=== PATIENT | male | born 1990 | race Caucasian/White ===

== ENCOUNTER 2017-04-28 16:17 | Inpatient (IN) | payer OTHER ==
[2017-04-28 18:04] LABS: Hemoglobin 13.4 gm/dl (11.8-15.2); Mean Corpuscular HGB Conc 34 % (32-34); Mean Corpuscular Hemoglobin 29 pg (28-32); Mean Corpuscular Volume 83 fl (84-94); Platelet Count 480 K/mm3 (140-440); Red Cell Distribution Width 13.2 % (13.2-15.2)
[2017-04-28 18:51] LABS: BUN/Creatinine Ratio 30; Blood Urea Nitrogen 27 mg/dL (9-20); Calcium 8.1 mg/dL (8.4-10.2); Hemolysis Index 9
[2017-04-28 21:16] LABS: Basophils % (Manual) 0 % (0.0-1.8); Total Cells Counted 200
[2017-04-28 21:17] LABS: Band Neutrophils # (Manual) 0.1 K/mm3; Eosinophils % (Manual) 0 % (0.0-4.3); Large Platelets Rare; Myelocytes # (Manual) 0.3 K/mm3; Platelet Estimate Consistent w Auto
[2017-04-29] MEDS ORDERED: K-DUR PO ONE (08:11)
--- NOTE | 2017-04-29 08:18 | Emergency Department Report ---
ED General Adult HPI - General Chief complaint: Recheck/Abnormal Lab/Rx Stated complaint: POTASSIUM Time Seen by Provider: 04/29/17 08:02 Source: patient, sole dyer Mode of arrival: Ambulatory Limitations: No Limitations - History of Present Illness Initial comments: Patient is 27 years old male sent from long-term for evaluation of a possible low potassium level. Patient stated that he has muscle cramps all over his body. Patient stated that he was recently treated for possible infection but he does not know exactly what was it , he think it's most likely urinary tract infection. Patient is currently denying any nausea or vomiting. Denied any cough or shortness of breath or fever. No abdominal pain and denied any urinary symptoms at this moment. Severity scale (0 -10): 0 - Related Data Allergies Allergy/AdvReac Type Severity Reaction Status Date / Time Penicillins Allergy Unknown Verified 04/28/17 17:24 promethazine [From Phenergan] Allergy Unknown Verified 04/28/17 17:24 ED Review of Systems ROS: Stated complaint: POTASSIUM Other details as noted in HPI Comment: All other systems reviewed and negative Constitutional: denies: chills, fever Respiratory: denies: cough, shortness of breath, SOB with exertion Cardiovascular: denies: chest pain, palpitations, dyspnea on exertion, edema, syncope, paroxysmal nocturnal dyspnea Gastrointestinal: denies: abdominal pain, nausea, vomiting, diarrhea, constipation, hematemesis, hematochezia Genitourinary: denies: urgency, dysuria, frequency, hematuria Musculoskeletal: myalgia. denies: back pain, joint swelling, arthralgia Skin: denies: rash, lesions Neurological: denies: headache, weakness, numbness, paresthesias, confusion, abnormal gait ED Past Medical Hx - Past Medical History Previous Medical History?: Yes Hx Asthma: Yes Additional medical history: High Cholesterol, Nephrotic Syndrome - Surgical History Past Surgical History?: Yes Additional Surgical History: Hernia repair, wrist - Social History Smoking Status: Never Smoker Substance Use Type: None ED Physical Exam - General Limitations: No Limitations General appearance: alert, in no apparent distress - Head Head exam: Present: atraumatic, normocephalic, normal inspection - Eye Eye exam: Present: normal appearance, PERRL Pupils: Present: normal accommodation - ENT ENT exam: Present: normal exam, normal orophraynx, mucous membranes moist - Neck Neck exam: Present: normal inspection, full ROM. Absent: tenderness, meningismus, lymphadenopathy - Respiratory Respiratory exam: Present: normal lung sounds bilaterally. Absent: respiratory distress, wheezes, rales, rhonchi, stridor, chest wall tenderness, accessory muscle use, decreased breath sounds, prolonged expiratory - Cardiovascular Cardiovascular Exam: Present: regular rate, normal rhythm, normal heart sounds - GI/Abdominal GI/Abdominal exam: Present: soft, normal bowel sounds. Absent: distended, tenderness, guarding, rebound, rigid, organomegaly, mass, bruit, pulsatile mass , hernia - Extremities Exam Extremities exam: Present: normal inspection, full ROM, normal capillary refill - Back Exam Back exam: Present: normal inspection, full ROM. Absent: tenderness, CVA tenderness (R), CVA tenderness (L), muscle spasm, paraspinal tenderness, vertebral tenderness - Neurological Exam Neurological exam: Present: alert, oriented X3, CN II-XII intact, normal gait, reflexes normal. Absent: abnormal gait, motor sensory deficit - Skin Skin exam: Present: warm, intact, normal color ED Course Vital Signs 04/28/17 04/29/17 04/29/17 17:09 02:59 04:50 Temperature 98.5 F 98.1 F 98.5 F Pulse Rate 89 81 86 Respiratory 16 18 20 Rate Blood Pressure 100/60 113/60 Blood Pressure 90/50 [Right] O2 Sat by Pulse 98 98 100 Oximetry 04/29/17 04/29/17 04/29/17 10:00 10:20 10:30 Temperature Pulse Rate 85 79 Respiratory 14 13 11 L Rate Blood Pressure 84/51 Blood Pressure [Right] O2 Sat by Pulse 99 99 99 Oximetry 04/29/17 10:45 Temperature Pulse Rate 85 Respiratory 15 Rate Blood Pressure 90/55 Blood Pressure [Right] O2 Sat by Pulse 97 Oximetry ED Medical Decision Making - Lab Data Result diagrams: 04/29/17 09:11 04/28/17 17:27 - EKG Data -: EKG Interpreted by Md EKG shows normal: sinus rhythm - EKG Data Interpretation: no acute changes - Radiology Data Radiology results: report reviewed Referring Physician: SAVANNAH ROSALES Patient Name: CARSON MEDINA Date of : 1990 Sex: Male Report Date: 2017-04-29 Report Status: Finalized Findings [facility] [address] [place] [address] XRay Report Signed Patient: CARSON QUICK MR#: [id number] : 1990 Acct:[id number] Age/Sex: 27 / M ADM Date: 04/28/17 Loc: ED Attending Dr: Ordering Physician: SAVANNAH ROSALES Date of Service: 04/29/17 Procedure(s): XR chest 1V ap Accession Number(s): [id number] cc: SAVANNAH ROSALES Fluoro Time In Minutes: AP CHEST: HISTORY: Cough, leukocytosis AP view of the chest demonstrates a normal mediastinal and cardiac contour with clear lungs and normal bony and soft tissue structures. IMPRESSION: Unremarkable AP chest. Transcribed By: TTR Dictated By: LUCAS BARRETT JR, MD Electronically Authenticated By: LUCAS BARRETT JR, MD Signed Date/Time: 04/29/17 1106 DD/ 1106 TD/TT: 04/29/17 1106 - Medical Decision Making Patient stated that he is feeling better. Potassium replaced. Patient has a leukocytosis that went up from 28,000 to 32,000, I discussed with Dr. Moulton presented the patient and he agreed to admit the patient to be service. Critical care attestation.: If time is entered above; I have spent that time in minutes in the direct care of this critically ill patient, excluding procedure time. ED Disposition Clinical Impression: Hypokalemia, Leukocytosis Disposition: OP ADMIT IP TO THIS HOSP Is pt being admited?: No Condition: Stable Referrals: GENEVA MORRISSEY MD [Primary Care Provider] - 3-5 Days
[2017-04-29 09:26] LABS: Hematocrit 38.9 % (35.5-45.6); Hemoglobin 13.4 gm/dl (11.8-15.2); Mean Corpuscular HGB Conc 35 % (32-34); Mean Corpuscular Hemoglobin 29 pg (28-32); Mean Corpuscular Volume 84 fl (84-94); Platelet Count 436 K/mm3 (140-440); Red Blood Count 4.64 M/mm3 (3.65-5.03); Red Cell Distribution Width 13.4 % (13.2-15.2)
[2017-04-29] MEDS: KCL 10MEQ/100ML 10 MEQ/100 ML BAG IV SCH ×2 (09:55→11:56)
[2017-04-29 10:23] LABS: Total Cells Counted 100
[2017-04-29 10:24] LABS: Basophils % (Manual) 0 % (0.0-1.8); Eosinophils % (Manual) 0 % (0.0-4.3); Platelet Estimate Consistent w Auto; RBC Morphology Normal
[2017-04-29] MEDS ORDERED: NACL 0.9% 1000 ML 1,000 ML ONE (10:32)
[2017-04-29] MEDS ORDERED: LEVAQUIN 750MG/150ML 750 MG/150 ML BAG IV ONE (10:38)
--- NOTE | 2017-04-29 11:12 | XRay Report ---
AP CHEST: HISTORY: Cough, leukocytosis AP view of the chest demonstrates a normal mediastinal and cardiac contour with clear lungs and normal bony and soft tissue structures. IMPRESSION: Unremarkable AP chest.
[2017-04-29] MEDS ORDERED: NACL 0.9% 1000 ML 1,000 ML IV ONE (11:42)
[2017-04-29] MEDS ORDERED: DULCOLAX PR PRN (12:23)
[2017-04-29] MEDS ORDERED: PERCOCET 5/325 PO PRN (12:23)
[2017-04-29] MEDS ORDERED: PROVENTIL IH PRN (12:23)
[2017-04-29] MEDS ORDERED: ZOFRAN IV PRN (12:23)
[2017-04-29] MEDS ORDERED: AMBIEN PO PRN (12:23)
[2017-04-29] MEDS ORDERED: TYLENOL PO PRN (12:23)
[2017-04-29 12:57] LABS: Bacteria,Urine 1+ /HPF (Negative); Bilirubin,Urine NEG (Negative); Blood,Urine NEG (Negative); Color,Urine Colorless (Yellow); Nitrite,Urine NEG (Negative); RBC,Urine < 1.0 /HPF (0.0-6.0); Urobilinogen,Urine < 2.0 mg/dL (<2.0); WBC,Urine < 1.0 /HPF (0.0-6.0)
[2017-04-29] MEDS: NACL 0.9% 1000 ML 1,000 ML IV SCH (14:12)
--- NOTE | 2017-04-29 15:27 | History and Physical Report ---
History of Present Illness Date of examination: 04/29/17 Date of admission: 04/29/17 11:40 Chief complaint: Muscle cramps/Potassium History of present illness: Patient is 27 years old male sent from care home for evaluation of a possible low potassium level. Patient stated that he has muscle cramps all over his body. Patient stated that he was recently treated for possible infection but he does not know exactly what was it , he think it's most likely urinary tract infection. Patient is currently denying any nausea or vomiting. Denied any cough or shortness of breath or fever. No abdominal pain and denied any urinary symptoms at this moment. Past History Past Medical History: hyperlipidemia, other (asthma, nephrotic syndrome) Past Surgical History: Other (Hernia repair, wrist) Social history: smoking (never smoked) Medications and Allergies Allergies Allergy/AdvReac Type Severity Reaction Status Date / Time Penicillins Allergy Unknown Verified 04/28/17 17:24 promethazine [From Phenergan] Allergy Unknown Verified 04/28/17 17:24 Home Medications Medication Instructions Recorded Confirmed Last Taken Type No Known Home Medications [No 04/29/17 04/29/17 Unknown History Reported Home Medications] Active Meds: Active Medications Acetaminophen (Tylenol) 650 mg PO Q4H PRN PRN Reason: Pain MILD(1-3)/Fever >100.5/YOUSIF Albuterol (Proventil) 2.5 mg IH Q4HRT PRN PRN Reason: Shortness Of Breath Bisacodyl (Dulcolax) 10 mg FL QDAY PRN PRN Reason: Constipation unrelieved by [facility] [place] Sodium Chloride (Nacl 0.9% 1000 Ml) 1,000 mls @ 100 mls/hr IV DIRECT DAX Last Admin: 04/29/17 14:12 Dose: 100 mls/hr Ondansetron HCl (Zofran) 4 mg IV Q8H PRN PRN Reason: N/V unrelieved by Reglan Oxycodone/Acetaminophen (Percocet 5/325) 1 tab PO Q6H PRN PRN Reason: Pain, Moderate (4-6) Zolpidem Tartrate (Ambien) 5 mg PO QHS PRN PRN Reason: Insomnia Review of Systems Constitutional: no weight loss, no weight gain, no chills Ears, nose, mouth and throat: no ear pain, no decreased hearing, no nasal congestion Cardiovascular: no orthopnea, no edema, no lightheadedness Respiratory: no cough with sputum, no hemoptysis, no shortness of breath Gastrointestinal: no vomiting, no constipation, no coffee ground emesis Genitourinary Male: no discharge, no urinary frequency, no nocturia Rectal: no pain, no bleeding Musculoskeletal: myalgias, no neck pain, no low back pain Integumentary: no pruritis, no sores, no jaundice Neurological: no transient paralysis, no weakness, no tingling Psychiatric: no anxiety, no change in sleep habits, no insomnia Endocrine: no heat intolerance, no excessive thirst, no polyuria Hematologic/Lymphatic: no easy bruising, no easy bleeding Allergic/Immunologic: no urticaria, no allergic rhinitis Exam - Constitutional Vitals: Temp Pulse Resp BP Pulse Ox 98.9 F 92 H 18 88/54 99 04/29/17 13:21 04/29/17 13:21 04/29/17 13:21 04/29/17 13:21 04/29/17 13:21 General appearance: Present: no acute distress, well-nourished - EENT Eyes: Present: PERRL ENT: hearing intact, clear oral mucosa - Neck Neck: Present: supple, normal ROM - Respiratory Respiratory effort: normal Respiratory: bilateral: CTA - Cardiovascular Heart Sounds: Present: S1 & S2. Absent: rub, click - Extremities Extremities: pulses symmetrical, No edema Peripheral Pulses: within normal limits - Abdominal General gastrointestinal: Present: soft, non-tender, non-distended, normal bowel sounds Male genitourinary: Present: deferred - Rectal Rectal Exam: deferred - Integumentary Integumentary: Present: clear, warm, dry - Musculoskeletal Musculoskeletal: gait normal, strength equal bilaterally - Psychiatric Psychiatric: appropriate mood/affect, intact judgment & insight - Neurologic Neurologic: CNII-XII intact, moves all extremities - Allied Health Allied health notes reviewed: nursing Results - Labs CBC & Chem 7: 04/29/17 09:11 04/28/17 17:27 Labs: Laboratory Last Values WBC 32.4 K/mm3 (4.5-11.0) H 04/29/17 09:11 RBC 4.64 M/mm3 (3.65-5.03) 04/29/17 09:11 Hgb 13.4 gm/dl (11.8-15.2) 04/29/17 09:11 Hct 38.9 % (35.5-45.6) 04/29/17 09:11 MCV 84 fl (84-94) 04/29/17 09:11 MCH 29 pg (28-32) 04/29/17 09:11 MCHC 35 % (32-34) H 04/29/17 09:11 RDW 13.4 % (13.2-15.2) 04/29/17 09:11 Plt Count 436 K/mm3 (140-440) 04/29/17 09:11 Lymph # Band Teacher 04/29/17 09:11 Add Manual Diff Complete 04/29/17 09:11 Total Counted 100 04/29/17 09:11 Seg Neuts % (Manual) 54.0 % (40.0-70.0) 04/29/17 09:11 Band Neutrophils % 0 % 04/29/17 09:11 Lymphocytes % (Manual) 36.0 % (13.4-35.0) H 04/29/17 09:11 Reactive Lymphs % (Man) 0 % 04/29/17 09:11 Monocytes % (Manual) 10.0 % (0.0-7.3) H 04/29/17 09:11 Eosinophils % (Manual) 0 % (0.0-4.3) 04/29/17 09:11 Basophils % (Manual) 0 % (0.0-1.8) 04/29/17 09:11 Metamyelocytes % 0 % 04/29/17 09:11 Myelocytes % 0 % 04/29/17 09:11 Promyelocytes % 0 % 04/29/17 09:11 Blast Cells % 0 % 04/29/17 09:11 Nucleated RBC % Not Reportable 04/29/17 09:11 Seg Neutrophils # Man 17.5 K/mm3 (1.8-7.7) H 04/29/17 09:11 Band Neutrophils # 0.0 K/mm3 04/29/17 09:11 Lymphocytes # (Manual) 11.7 K/mm3 (1.2-5.4) H 04/29/17 09:11 Abs React Lymphs (Man) 0.0 K/mm3 04/29/17 09:11 Monocytes # (Manual) 3.2 K/mm3 (0.0-0.8) H 04/29/17 09:11 Eosinophils # (Manual) 0.0 K/mm3 (0.0-0.4) 04/29/17 09:11 Basophils # (Manual) 0.0 K/mm3 (0.0-0.1) 04/29/17 09:11 Metamyelocytes # 0.0 K/mm3 04/29/17 09:11 Myelocytes # 0.0 K/mm3 04/29/17 09:11 Promyelocytes # 0.0 K/mm3 04/29/17 09:11 Blast Cells # 0.0 K/mm3 04/29/17 09:11 WBC Morphology Not Reportable 04/29/17 09:11 Hypersegmented Neuts Not Reportable 04/29/17 09:11 Hyposegmented Neuts Not Reportable 04/29/17 09:11 Hypogranular Neuts Not Reportable 04/29/17 09:11 Smudge Cells Not Reportable 04/29/17 09:11 Toxic Granulation Not Reportable 04/29/17 09:11 Toxic Vacuolation Not Reportable 04/29/17 09:11 Dohle Bodies Not Reportable 04/29/17 09:11 Pelger-Huet Anomaly Not Reportable 04/29/17 09:11 Xiomara Rods Not Reportable 04/29/17 09:11 Platelet Estimate Consistent w auto 04/29/17 09:11 Clumped Platelets Not Reportable 04/29/17 09:11 Plt Clumps, EDTA Not Reportable 04/29/17 09:11 Large Platelets Not Reportable 04/29/17 09:11 Giant Platelets Not Reportable 04/29/17 09:11 Platelet Satelliting Not Reportable 04/29/17 09:11 Plt Morphology Comment Not Reportable 04/29/17 09:11 RBC Morphology Normal 04/29/17 09:11 Dimorphic RBCs Not Reportable 04/29/17 09:11 Polychromasia Not Reportable 04/29/17 09:11 Hypochromasia Not Reportable 04/29/17 09:11 Poikilocytosis Not Reportable 04/29/17 09:11 Anisocytosis Not Reportable 04/29/17 09:11 Microcytosis Not Reportable 04/29/17 09:11 Macrocytosis Not Reportable 04/29/17 09:11 Spherocytes Not Reportable 04/29/17 09:11 Pappenheimer Bodies Not Reportable 04/29/17 09:11 Sickle Cells Not Reportable 04/29/17 09:11 Target Cells Not Reportable 04/29/17 09:11 Tear Drop Cells Not Reportable 04/29/17 09:11 Ovalocytes Not Reportable 04/29/17 09:11 Helmet Cells Not Reportable 04/29/17 09:11 [place] Bodies Not Reportable 04/29/17 09:11 [place] Rings Not Reportable 04/29/17 09:11 [place] Cells Not Reportable 04/29/17 09:11 Bite Cells Not Reportable 04/29/17 09:11 Crenated Cell Not Reportable 04/29/17 09:11 Elliptocytes Not Reportable 04/29/17 09:11 Acanthocytes (Spur) Not Reportable 04/29/17 09:11 Rouleaux Not Reportable 04/29/17 09:11 Hemoglobin C Crystals Not Reportable 04/29/17 09:11 Schistocytes Not Reportable 04/29/17 09:11 Malaria parasites Not Reportable 04/29/17 09:11 Fred Bodies Not Reportable 04/29/17 09:11 Hem Pathologist Commnt No 04/29/17 09:11 Sodium 126 mmol/L (137-145) L 04/28/17 17:27 Potassium 2.8 mmol/L (3.6-5.0) L* 04/28/17 17:27 Chloride 81.8 mmol/L (98-107) L 04/28/17 17:27 Carbon Dioxide 34 mmol/L (22-30) H 04/28/17 17:27 Anion Gap 13 mmol/L 04/28/17 17:27 BUN 27 mg/dL (9-20) H 04/28/17 17:27 Creatinine 0.9 mg/dL (0.8-1.5) 04/28/17 17:27 Estimated GFR > 60 ml/min 04/28/17 17:27 BUN/Creatinine Ratio 30 % 04/28/17 17:27 Glucose 122 mg/dL (75-100) H 04/28/17 17:27 Lactic Acid 1.30 mmol/L (0.7-2.0) 04/29/17 11:09 Calcium 8.1 mg/dL (8.4-10.2) L 04/28/17 17:27 Urine Color Colorless (Yellow) 04/29/17 11:45 Urine Turbidity Clear (Clear) 04/29/17 11:45 Urine pH 8.0 (5.0-7.0) H 04/29/17 11:45 Ur Specific [place] 1.005 (1.003-1.030) 04/29/17 11:45 Urine Protein 30 mg/dl mg/dL (Negative) 04/29/17 11:45 Urine Glucose (UA) Neg mg/dL (Negative) 04/29/17 11:45 Urine Ketones Neg mg/dL (Negative) 04/29/17 11:45 Urine Blood Neg (Negative) 04/29/17 11:45 Urine Nitrite Neg (Negative) 04/29/17 11:45 Urine Bilirubin Neg (Negative) 04/29/17 11:45 Urine Urobilinogen < 2.0 mg/dL (<2.0) 04/29/17 11:45 Ur Leukocyte Esterase Neg (Negative) 04/29/17 11:45 Urine WBC (Auto) < 1.0 /HPF (0.0-6.0) 04/29/17 11:45 Urine RBC (Auto) < 1.0 /HPF (0.0-6.0) 04/29/17 11:45 U Epithel Cells (Auto) < 1.0 /HPF (0-13.0) 04/29/17 11:45 Urine Bacteria (Auto) 1+ /HPF (Negative) 04/29/17 11:45 Assessment and Plan Advance Directives: Yes VTE prophylaxis?: Chemical - Patient Problems (1) Hyponatremia Current Visit: Yes Status: Acute Plan to address problem: IVF given, recheck BMP today and ordered for am (2) Hypokalemia Current Visit: Yes Status: Acute Plan to address problem: Replaced. BMP ordered for today, Replace PRN (3) Leukocytosis Current Visit: Yes Status: Acute Plan to address problem: Etiology unknown, blood cultures pending, Levaquin initiated (4) Hypotension Current Visit: Yes Status: Acute Plan to address problem: IVF, continue to monitor
[2017-04-29] MEDS ORDERED: MAGNESIUM SULFATE 2GM/50ML 2 GM/50 ML BAG IV ONE (15:44)
[2017-04-29 17:13] LABS: BUN/Creatinine Ratio 21; Blood Urea Nitrogen 19 mg/dL (9-20); Calcium 8.2 mg/dL (8.4-10.2); Hemolysis Index 6
[2017-04-30 05:43] LABS: Hematocrit 37.5 % (35.5-45.6); Hemoglobin 12.9 gm/dl (11.8-15.2); Mean Corpuscular HGB Conc 34 % (32-34); Mean Corpuscular Hemoglobin 29 pg (28-32); Mean Corpuscular Volume 84 fl (84-94); Platelet Count 333 K/mm3 (140-440); Red Blood Count 4.46 M/mm3 (3.65-5.03); Red Cell Distribution Width 13.6 % (13.2-15.2)
[2017-04-30 06:06] LABS: BUN/Creatinine Ratio 21; Blood Urea Nitrogen 15 mg/dL (9-20); Calcium 8.2 mg/dL (8.4-10.2); Hemolysis Index 8
[2017-04-30] MEDS: NACL 0.9% 1000 ML 1,000 ML IV SCH ×3 (06:11→20:18)
[2017-04-30 06:34] LABS: Basophils % (Manual) 0 % (0.0-1.8); Myelocytes # (Manual) 0.2 K/mm3; Total Cells Counted 100
[2017-04-30 06:35] LABS: Platelet Estimate Consistent w Auto
--- NOTE | 2017-04-30 09:57 | Progress Note ---
Assessment and Plan Assessment and plan: (1) Hyponatremia IVF given, recheck BMP today and ordered for am (2) Hypokalemia Replaced. BMP ordered for today, Replace PRN (3) Leukocytosis Etiology unknown, blood cultures pending, Levaquin initiated (4) SIRS Etiology unknown, no source of infection. Follow blood cultures. History Interval history: Patient denies any fever chills. Patient reports that his muscle spasm/cramps have resolved. Hospitalist Physical - Constitutional Vitals: Temp Pulse Resp BP Pulse Ox 98.4 F 74 18 90/57 100 04/30/17 08:27 04/30/17 08:27 04/30/17 08:27 04/30/17 08:27 04/30/17 08:27 General appearance: Present: no acute distress, well-nourished - EENT Eyes: Present: PERRL, EOM intact ENT: hearing intact, clear oral mucosa, dentition normal - Neck Neck: Present: supple, normal ROM - Respiratory Respiratory effort: normal Respiratory: bilateral: CTA - Cardiovascular Rhythm: regular Heart Sounds: Present: S1 & S2. Absent: gallop, rub - Extremities Extremities: no ischemia, No edema, Full ROM - Abdominal General gastrointestinal: soft, non-tender, non-distended, normal bowel sounds - Integumentary Integumentary: Present: clear, warm, dry - Neurologic Neurologic: CNII-XII intact, moves all extremities Results - Labs CBC & Chem 7: 04/30/17 05:00 04/30/17 05:00 Labs: Laboratory Last Values WBC 17.3 K/mm3 (4.5-11.0) H 04/30/17 05:00 RBC 4.46 M/mm3 (3.65-5.03) 04/30/17 05:00 Hgb 12.9 gm/dl (11.8-15.2) 04/30/17 05:00 Hct 37.5 % (35.5-45.6) 04/30/17 05:00 MCV 84 fl (84-94) 04/30/17 05:00 MCH 29 pg (28-32) 04/30/17 05:00 MCHC 34 % (32-34) 04/30/17 05:00 RDW 13.6 % (13.2-15.2) 04/30/17 05:00 Plt Count 333 K/mm3 (140-440) 04/30/17 05:00 Lymph # Machine Shorthand Reporter 04/30/17 05:00 Add Manual Diff Complete 04/30/17 05:00 Total Counted 100 04/30/17 05:00 Seg Neuts % (Manual) 58.0 % (40.0-70.0) 04/30/17 05:00 Band Neutrophils % 0 % 04/30/17 05:00 Lymphocytes % (Manual) 35.0 % (13.4-35.0) 04/30/17 05:00 Reactive Lymphs % (Man) 1.0 % 04/30/17 05:00 Monocytes % (Manual) 4.0 % (0.0-7.3) 04/30/17 05:00 Eosinophils % (Manual) 1.0 % (0.0-4.3) 04/30/17 05:00 Basophils % (Manual) 0 % (0.0-1.8) 04/30/17 05:00 Metamyelocytes % 0 % 04/30/17 05:00 Myelocytes % 1.0 % 04/30/17 05:00 Promyelocytes % 0 % 04/30/17 05:00 Blast Cells % 0 % 04/30/17 05:00 Nucleated RBC % Not Reportable 04/30/17 05:00 Seg Neutrophils # Man 10.0 K/mm3 (1.8-7.7) H 04/30/17 05:00 Band Neutrophils # 0.0 K/mm3 04/30/17 05:00 Lymphocytes # (Manual) 6.1 K/mm3 (1.2-5.4) H 04/30/17 05:00 Abs React Lymphs (Man) 0.2 K/mm3 04/30/17 05:00 Monocytes # (Manual) 0.7 K/mm3 (0.0-0.8) 04/30/17 05:00 Eosinophils # (Manual) 0.2 K/mm3 (0.0-0.4) 04/30/17 05:00 Basophils # (Manual) 0.0 K/mm3 (0.0-0.1) 04/30/17 05:00 Metamyelocytes # 0.0 K/mm3 04/30/17 05:00 Myelocytes # 0.2 K/mm3 04/30/17 05:00 Promyelocytes # 0.0 K/mm3 04/30/17 05:00 Blast Cells # 0.0 K/mm3 04/30/17 05:00 WBC Morphology Not Reportable 04/30/17 05:00 Hypersegmented Neuts Not Reportable 04/30/17 05:00 Hyposegmented Neuts Not Reportable 04/30/17 05:00 Hypogranular Neuts Not Reportable 04/30/17 05:00 Smudge Cells Not Reportable 04/30/17 05:00 Toxic Granulation Not Reportable 04/30/17 05:00 Toxic Vacuolation Not Reportable 04/30/17 05:00 Dohle Bodies Not Reportable 04/30/17 05:00 Pelger-Huet Anomaly Not Reportable 04/30/17 05:00 Xiomara Rods Not Reportable 04/30/17 05:00 Platelet Estimate Consistent w auto 04/30/17 05:00 Clumped Platelets Not Reportable 04/30/17 05:00 Plt Clumps, EDTA Not Reportable 04/30/17 05:00 Large Platelets Not Reportable 04/30/17 05:00 Giant Platelets Not Reportable 04/30/17 05:00 Platelet Satelliting Not Reportable 04/30/17 05:00 Plt Morphology Comment Not Reportable 04/30/17 05:00 RBC Morphology Not Reportable 04/30/17 05:00 Dimorphic RBCs Not Reportable 04/30/17 05:00 Polychromasia Not Reportable 04/30/17 05:00 Hypochromasia Not Reportable 04/30/17 05:00 Poikilocytosis Not Reportable 04/30/17 05:00 Anisocytosis Not Reportable 04/30/17 05:00 Microcytosis Not Reportable 04/30/17 05:00 Macrocytosis Not Reportable 04/30/17 05:00 Spherocytes Not Reportable 04/30/17 05:00 Pappenheimer Bodies Not Reportable 04/30/17 05:00 Sickle Cells Not Reportable 04/30/17 05:00 Target Cells Not Reportable 04/30/17 05:00 Tear Drop Cells Not Reportable 04/30/17 05:00 Ovalocytes Not Reportable 04/30/17 05:00 Helmet Cells Not Reportable 04/30/17 05:00 Silver[place] Bodies Not Reportable 04/30/17 05:00 [place] Rings Not Reportable 04/30/17 05:00 [place] Cells Not Reportable 04/30/17 05:00 Bite Cells Not Reportable 04/30/17 05:00 Crenated Cell Not Reportable 04/30/17 05:00 Elliptocytes Not Reportable 04/30/17 05:00 Acanthocytes (Spur) Not Reportable 04/30/17 05:00 Rouleaux Not Reportable 04/30/17 05:00 Hemoglobin C Crystals Not Reportable 04/30/17 05:00 Schistocytes Not Reportable 04/30/17 05:00 Malaria parasites Not Reportable 04/30/17 05:00 Fred Bodies Not Reportable 04/30/17 05:00 Hem Pathologist Commnt No 04/30/17 05:00 Sodium 135 mmol/L (137-145) L 04/30/17 05:00 Potassium 3.7 mmol/L (3.6-5.0) 04/30/17 05:00 Chloride 93.6 mmol/L (98-107) L 04/30/17 05:00 Carbon Dioxide 31 mmol/L (22-30) H 04/30/17 05:00 Anion Gap 14 mmol/L 04/30/17 05:00 BUN 15 mg/dL (9-20) 04/30/17 05:00 Creatinine 0.7 mg/dL (0.8-1.5) L 04/30/17 05:00 Estimated GFR > 60 ml/min 04/30/17 05:00 BUN/Creatinine Ratio 21 % 04/30/17 05:00 Glucose 81 mg/dL (75-100) 04/30/17 05:00 Lactic Acid 1.30 mmol/L (0.7-2.0) 04/29/17 11:09 Calcium 8.2 mg/dL (8.4-10.2) L 04/30/17 05:00 Urine Color Colorless (Yellow) 04/29/17 11:45 Urine Turbidity Clear (Clear) 04/29/17 11:45 Urine pH 8.0 (5.0-7.0) H 04/29/17 11:45 Ur Specific [place] 1.005 (1.003-1.030) 04/29/17 11:45 Urine Protein 30 mg/dl mg/dL (Negative) 04/29/17 11:45 Urine Glucose (UA) Neg mg/dL (Negative) 04/29/17 11:45 Urine Ketones Neg mg/dL (Negative) 04/29/17 11:45 Urine Blood Neg (Negative) 04/29/17 11:45 Urine Nitrite Neg (Negative) 04/29/17 11:45 Urine Bilirubin Neg (Negative) 04/29/17 11:45 Urine Urobilinogen < 2.0 mg/dL (<2.0) 04/29/17 11:45 Ur Leukocyte Esterase Neg (Negative) 04/29/17 11:45 Urine WBC (Auto) < 1.0 /HPF (0.0-6.0) 04/29/17 11:45 Urine RBC (Auto) < 1.0 /HPF (0.0-6.0) 04/29/17 11:45 U Epithel Cells (Auto) < 1.0 /HPF (0-13.0) 04/29/17 11:45 Urine Bacteria (Auto) 1+ /HPF (Negative) 04/29/17 11:45
[2017-04-30] MEDS: LEVAQUIN 750MG/150ML 750 MG/150 ML BAG IV SCH (10:45)
[2017-04-30 23:41] VITALS: BP 97/59
[2017-05-01] MEDS: NACL 0.9% 1000 ML 1,000 ML IV SCH (05:17)
[2017-05-01 07:26] LABS: Hematocrit 35.3 % (35.5-45.6); Hemoglobin 12.2 gm/dl (11.8-15.2); Mean Corpuscular HGB Conc 35 % (32-34); Mean Corpuscular Hemoglobin 29 pg (28-32); Mean Corpuscular Volume 85 fl (84-94); Platelet Count 302 K/mm3 (140-440); Red Blood Count 4.16 M/mm3 (3.65-5.03); Red Cell Distribution Width 13.8 % (13.2-15.2)
[2017-05-01 07:49] LABS: BUN/Creatinine Ratio 21; Blood Urea Nitrogen 15 mg/dL (9-20); Hemolysis Index 6
[2017-05-01 10:14] LABS: Basophils % (Manual) 0 % (0.0-1.8); Myelocytes # (Manual) 0.2 K/mm3; Total Cells Counted 100
[2017-05-01 10:15] LABS: RBC Morphology Normal
[2017-05-01] MEDS: LEVAQUIN 750MG/150ML 750 MG/150 ML BAG IV SCH (11:29)
--- NOTE | 2017-05-01 13:41 | Discharge Summary ---
<CHELLYCRISTIANO DRIVER - Last Filed: 05/01/17 14:48> Providers - Providers Date of Admission: 04/29/17 11:40 Date of discharge: 05/01/17 Attending physician: MARLINE CHAPARRO Primary care physician: GENEVA MORRISSEY Hospitalization Reason for admission: hypokalemia: Condition: Good Hospital course: Patient is 27 years old male with no past medical history who presents to the Emergency Department for muscle cramps all over his body . Patient found to be with low potassium. Patient was diagnosis with hyponatremia , hypokalemia, leukocytosis and hypotension. He was treated with supplemental potassium and IV fluid and his hypokalima was corrected. Patient clinically improved. Patient was advised to follow up with his primary care. Discharge Diagnosed Hyponatremia Hypokalemia Leukocytosis Hypotension Disposition: TO HOME OR SELFCARE Time spent for discharge: 33 minutes Core Measure Documentation - Palliative Care Palliative Care/ Comfort Measures: Not Applicable - Core Measures Any of the following diagnoses?: none Exam - Constitutional Vitals: Temp Pulse Resp BP Pulse Ox 98.8 F 74 18 97/59 99 04/30/17 22:58 05/01/17 07:59 04/30/17 22:58 04/30/17 22:58 05/01/17 07:59 General appearance: Present: no acute distress - EENT Eyes: Present: PERRL ENT: hearing intact - Neck Neck: Present: supple - Respiratory Respiratory effort: normal Respiratory: bilateral: CTA - Cardiovascular Rhythm: regular Heart Sounds: Present: S1 & S2 - Abdominal General gastrointestinal: Present: soft, non-tender Male genitourinary: Present: deferred - Rectal Rectal Exam: deferred - Integumentary Integumentary: Present: clear, warm, dry - Musculoskeletal Musculoskeletal: strength equal bilaterally - Psychiatric Psychiatric: appropriate mood/affect - Neurologic Neurologic: moves all extremities - Allied Health Allied health notes reviewed: nursing Plan Diet: low fat, low cholesterol, low salt Follow up with: GENEVA MORRISSEY MD [Primary Care Provider] - 3-5 Days <MARLINE CHAPARRO - Last Filed: 05/05/17 10:09> Providers - Providers Date of Admission: 04/29/17 11:40 Attending physician: MARLINE CHAPARRO Primary care physician: GENEVA MORRISSEY Hospitalization Hospital course: I saw and evaluated the patient. I agree with the findings and the plan of care as documented in the Nurse Practitioner's~note, with the following corrections and additions. Exam - Constitutional Vitals: Temp Pulse Resp BP Pulse Ox 98.8 F 74 18 97/59 99 04/30/17 22:58 05/01/17 07:59 04/30/17 22:58 04/30/17 22:58 05/01/17 07:59
== END 2017-05-01 17:45 | disposition home or self-care (01) | DRG 641 ==
LOC: EEVIPCON 16:17 → ED 16:17 → 3A 04-29 11:40
PROVIDERS: ADMIT Internal Medicine; ATTEND Hospitalist
DX: E87.6 Hypokalemia (principal); R65.10 Systemic inflammatory response syndrome (SIRS) of non-infectious origin without acute organ dysfunction; E87.1 Hypo-osmolality and hyponatremia; I95.9 Hypotension, unspecified; J45.909 Unspecified asthma, uncomplicated
CPT/HCPCS: 36415; 71045; 80048; 81001; 82140; 85007; 85025; 87040; 93005; 93010; 96374; J1956; J3475; J3480; J7030